=== PATIENT | male | born 1960 | race Caucasian/White ===

== ENCOUNTER 2018-03-24 06:59 | Day surgery (SDC) | payer OTHER ==
[2018-03-24] MEDS ORDERED: FENTAnyl 50 MCG/ML VIAL (09:47)
[2018-03-24] MEDS ORDERED: MIDAZOLAM 1 MG/ML 2 ML INJ ×2 (09:47)
== END 2018-03-24 12:32 | disposition home or self-care (01) ==
LOC: GIL 06:59
DX: K92.1 Melena (principal); K64.8 Other hemorrhoids; D12.5 Benign neoplasm of sigmoid colon; K57.30 Diverticulosis of large intestine without perforation or abscess without bleeding; I10 Essential (primary) hypertension; E11.9 Type 2 diabetes mellitus without complications
CPT/HCPCS: 43239; 82962; 88305; 88312